=== PATIENT | female | born 1970 | race African-American/Black ===

== ENCOUNTER 2019-05-01 13:14 | Emergency (ER) | payer MEDICAID ==
[~2019-05-01] VITALS: Ht 154.9 cm; Wt 52.2 kg
[2019-05-01] MEDS ORDERED: Fluorescein Strips LEFT EYE ONE (14:30)
[2019-05-01] MEDS ORDERED: Tetracaine 0.5% Opth 4ml Soln LEFT EYE ONE (14:30)
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
[2019-05-01] MEDS ORDERED: TYLENOL EXTRA500 MG ORAL (15:31)
--- NOTE | 2019-05-01 15:40 | NUR ---
ED Nurse Note: Patient cleared for DC by Elva LAMBERT. Patient AxO x 4, no s/s of acute distress. ID band removed. Patient walks with steady gait, took all belongings.
[2019-05-01 19:48] VITALS: BP 101/67
== END 2019-05-01 15:40 | disposition home or self-care (01) ==
LOC: EMR 14:50
DX: H43.392 Other vitreous opacities, left eye (principal)
CPT/HCPCS: 99283